=== PATIENT | female | born 1980 | race Two or more races ===

== ENCOUNTER 2021-03-09 15:18 | Emergency (ER) | payer OTHER ==
[~2021-03-09] VITALS: Ht 162.6 cm; Wt 59.9 kg
== END 2021-03-09 19:58 | disposition home or self-care (01) ==
LOC: ER 15:18
DX: S62.635A Displaced fracture of distal phalanx of left ring finger, initial encounter for closed fracture (principal); W23.0XXA Caught, crushed, jammed, or pinched between moving objects, initial encounter; Y93.89 Activity, other specified; Y92.89 Other specified places as the place of occurrence of the external cause; Y99.8 Other external cause status

== ENCOUNTER 2023-08-07 08:35 | Outpatient (CLI) | payer OTHER | END 2023-08-07 08:40 | disposition home or self-care (01) | LOC: RAD 08:35 | PROVIDERS: ATTEND Physical Medicine & Rehabilitation | DX: M25.551 Pain in right hip (principal); M25.552 Pain in left hip ==